=== PATIENT | female | born 1950 | race Caucasian/White ===

== ENCOUNTER 2021-05-06 15:28 | Emergency (ER) | payer MEDICARE, SELFPAY ==
[2021-05-06 15:45] VITALS: BP 162/87; PULSE 81; RESP 14; TEMP 37; O2SAT 97
--- NOTE | 2021-05-06 16:36 | ED.EAR ---
HPI - Ear Problem General Chief complaint: Ear Stated complaint: ear pain Time Seen by Provider: 05/06/21 16:36 Source: patient History of Present Illness HPI Narrative: Patient presents with left ear pain. Denies any drainage from her ear no hearing loss. MD Complaint: ear pain Related Data Home Medications Medication Instructions Recorded Confirmed aspirin [Adult Low Dose Aspirin] 81 mg PO DAILY 05/06/21 05/06/21 atorvastatin 40 mg PO DAILY 05/06/21 05/06/21 benazepril-hydrochlorothiazide 1 tablet PO DAILY 05/06/21 05/06/21 fenofibrate 160 mg PO DAILY 05/06/21 05/06/21 metoprolol tartrate 100 mg PO DAILY 05/06/21 05/06/21 nabumetone 500 mg PO BID 05/06/21 05/06/21 pantoprazole 40 mg PO QAM 05/06/21 05/06/21 potassium chloride 20 meq PO DAILY 05/06/21 05/06/21 Allergies Allergy/AdvReac Type Severity Reaction Status Date / Time celecoxib [From Celebrex] Allergy Unknown Verified 05/06/21 16:39 Sulfa (Sulfonamide Allergy Rash Verified 05/06/21 16:39 Antibiotics) tetanus immune globulin Allergy Swelling Verified 05/06/21 15:52 of Lip/Tongue/Throat Review of Systems Review of Systems: CONSTITUTIONAL: Denies fever, chills, or sweats. EYES: Denies visual changes, redness, or discharge. ENT: Denies rhinorrhea, congestion, sore throat, or otalgia. CARDIOVASCULAR: Denies chest pain, palpitations, or edema. RESPIRATORY: Denies cough or dyspnea. GASTROINTESTINAL: Denies abdominal pain, nausea, vomiting, or diarrhea. GENITOURINARY: Denies dysuria or hematuria. SKIN: Denies rash or itching. MUSCULOSKELETAL: Denies back pain, joint pain, or myalgia. NEUROLOGIC: Denies headache, numbness, or weakness. PSYCHIATRIC: Denies anxiety or depression. Allergic/Immunologic: Comments: At time of signature, agree with nursing past medical, surgical, social and family history. There is no relevant family history pertinent to the presenting complaint Exam Narrative: GENERAL: Well-appearing, well-nourished, and in no acute distress. HEAD: Normocephalic, atraumatic. EYES: PERRLA and EOMI. ENT: Nares clear, no rhinorrhea or epistaxis. Mucous membranes moist. Left ear moderate erythremia TM bulging NECK: Supple. CHEST: Clear to auscultation. No respiratory distress. HEART: Regular rate and rhythm. No murmur heard. Normal peripheral pulses. ABDOMEN: Soft, nontender, nondistended, normal active bowel sounds. EXTREMITIES: Normal range of motion. No edema. SKIN: Warm, dry, no rash. NEURO: No focal deficits. Alert and oriented x3. Stephanie Coma Scale Eye Opening: Spontaneous 4 Stephanie Coma Scale Motor: Obeys Commands 6 Stephanie Coma Scale Verbal: Oriented 5 Stephanie Coma Scale Total 15 Course Course Level of Care: Express Care Visit Vital Signs Vital signs: Vital Signs Temperature 37.0 C 05/06/21 15:45 Pulse Rate 81 05/06/21 15:45 Respiratory Rate 14 05/06/21 15:45 Blood Pressure 162/87 H 05/06/21 15:45 Pulse Oximetry 97 05/06/21 15:45 Temperature 37.0 C 05/06/21 15:45 Pulse Rate 81 05/06/21 15:45 Respiratory Rate 14 05/06/21 15:45 Blood Pressure 162/87 H 05/06/21 15:45 Pulse Oximetry 97 05/06/21 15:45 Please KD schedule a followup visit with your personal physician for further evaluation and treatment. Including recheck and discussion of your blood pressure. If your symptoms persist, change or worsen significantly before you can contact your personal physician then please, without delay, go to the emergency department for further evaluation Medical Decision Making Differential Diagnosis Differential Diagnosis: Otitis media, otitis externa, eustachian tube dysfunction Vital Signs Vital Signs: Vital Signs Temperature 37.0 C 05/06/21 15:45 Pulse Rate 81 05/06/21 15:45 Respiratory Rate 14 05/06/21 15:45 Blood Pressure 162/87 H 05/06/21 15:45 Pulse Oximetry 97 05/06/21 15:45 Temperature 37.0 C 05/06/21 15:45 Pulse Rate 81 05/06/21 15:45 Respiratory Rate
== END 2021-05-06 16:49 | disposition home or self-care (01) ==
PROVIDERS: Emergency Provider Nurse Practitioner Family
DX: H66.92 Otitis media, unspecified, left ear (principal); E78.00 Pure hypercholesterolemia, unspecified; I10 Essential (primary) hypertension; M19.90 Unspecified osteoarthritis, unspecified site
CPT/HCPCS: 99213; G0463